=== PATIENT | male | born 1980 | race African-American/Black ===

== ENCOUNTER 2022-12-10 17:59 | Emergency (ER) | payer SELFPAY ==
--- NOTE | 2022-12-10 18:55 | EDPHYS ---
Physician Documentation [facility] Name: Mahamed Minor Sr Age: 42 yrs Sex: Male : 1980 Arrival Date: 12/10/2022 Time: 17:59 Bed 11 Private MD: MANNY Physician Zaki Crook HPI: 12/10 18:27 This 42 yrs old Black Male presents to ER via Ambulatory with complaints of Sore kb Throat, Ear Pain. 18:27 The patient presents with sore throat. The patient describes throat pain as constant. kb Onset: The symptoms/episode began/occurred 6 day(s) ago. Severity of symptoms: At their worst the symptoms were moderate, in the emergency department the symptoms are unchanged. Modifying factors: The symptoms are alleviated by nothing, the symptoms are aggravated by swallowing, Patient's oral intake status: good. Associated signs and symptoms: Pertinent positives: earache, Sore throat Pertinent negatives fever. The patient has not experienced similar symptoms in the past. The patient has not recently seen a physician. Historical: - Allergies: 18:21 No Known Allergies; aa5 - PMHx: 18:21 None; aa5 - PSHx: 18:21 vasectomy and reversal; aa5 - Immunization history:: Adult Immunizations unknown. - Social history:: Smoking status: Patient reports the use of cigarette tobacco products. ROS: 18:26 Constitutional: Negative for fever, chills, and weight loss. kb 18:26 ENT: Positive for ear pain, sore throat. 18:26 All other systems are negative. Exam: 18:26 Constitutional: This is a well developed, well nourished patient who is awake, alert, kb and in no acute distress. Head/Face: Normocephalic, atraumatic. Cardiovascular: Regular rate and rhythm with a normal S1 and S2. No gallops, murmurs, or rubs. No pulse deficits. Respiratory: Respirations even and unlabored. No increased work of breathing. Talking in full sentences Skin: Warm, dry with normal turgor. Normal color. MS/ Extremity: Pulses equal, no cyanosis. Neurovascular intact. Full, normal range of motion. Neuro: Awake and alert, GCS 15, oriented to person, place, time, and situation. Moves all extremities. Normal gait. 18:26 ENT: External ear(s): are unremarkable, Ear canal(s): are normal, TM's: are normal, Posterior pharynx: Airway: normal, Tonsils: are normal in appearance, Uvula: normal, midline, swelling, is not appreciated, erythema, that is moderate. Vital Signs: 18:20 BP 166 / 110; Pulse 56; Resp 15 S; Temp 97.7(TE); Pulse Ox 100% on R/A; Weight 85.28 kg aa5 (R); Height 5 ft. 9 in. (R); 18:20 Body Mass Index 27.76 (85.28 kg, 175.26 cm) aa5 MDM: 18:19 Patient medically screened. kb 18:26 Data reviewed: vital signs, nurses notes. kb 18:27 Differential diagnosis: retropharyngeal abcess pharyngitis, strep, uri, otitis media, kb peritonsillar abscess. 18:27 Test considered but Not performed: CT: CT soft tissue neck considered, but pt has no kb swelling, no fever, no lymphadenopathy. 18:54 Counseling: I had a detailed discussion with the patient and/or guardian regarding: the kb historical points, exam findings, and any diagnostic results supporting the discharge/admit diagnosis, lab results, the need for outpatient follow up, a family practitioner, to return to the emergency department if symptoms worsen or persist or if there are any questions or concerns that arise at home. 12/10 18:22 Order name: Strep kb 12/10 19:01 Order name: Throat Culture EDMS Administered Medications: 18:57 Drug: Ketorolac IM 30 mg Route: IM; Site: left gluteus; mb9 19:08 Follow up: Response: No adverse reaction mb9 Disposition Summary: 12/10/22 18:54 Discharge Ordered Location: Home kb Condition: Stable kb Diagnosis - Acute pharyngitis, unspecified kb Followup: kb - With: Emergency Department - When: As needed - Reason: Worsening of condition Followup: kb - With: Private Physician - When: 2 - 3 days - Reason: Recheck today's complaints, Continuance of care, Re-evaluation by your physician Discharge Instructions: - Discharge Summary Sheet kb - Sore Throat kb - Pharyngitis, [id number] kb Forms: - Medication Reconciliation Form kb - Thank You Letter kb - Antibiotic Education kb - Prescription Opioid Use kb Prescriptions: - Diclofenac Sodium 75 mg Oral tablet,delayed release (DR/EC) - take 1 tablet by ORAL route 2 times per day As needed; 30 tablet; Refills: 0, kb Product Selection Permitted Signatures: Dispatcher [employer] Michelle Nuñez, SOCOC DEEDEE-Quyen Petersen, RN RN aa5 Alexandra Martinez RN RN mb9
--- NOTE | 2022-12-10 18:55 | ER ---
Nurse's Notes [facility] Name: Mahamed Minor Sr Age: 42 yrs Sex: Male : 1980 Arrival Date: 12/10/2022 Time: 17:59 Bed 11 Private MD: Diagnosis: Acute pharyngitis, unspecified Presentation: 12/10 18:20 Chief complaint: Patient states: right ear pain radiating down to right jaw that began aa5 approximately 1 week ago. Coronavirus screen: sore throat. Ebola Screen: Patient denies travel to an Ebola-affected area in the 21 days before illness onset. Initial Sepsis Screen: Does the patient meet any 2 criteria? No. Patient's initial sepsis screen is negative. Does the patient have a suspected source of infection? No. Patient's initial sepsis screen is negative. Risk Assessment: Do you want to hurt yourself or someone else? Patient reports no desire to harm self or others. Onset of symptoms was November 2022. 18:20 Acuity: BERYL 4 aa5 18:20 Method Of Arrival: Ambulatory aa5 Historical: - Allergies: 18:21 No Known Allergies; aa5 - PMHx: 18:21 None; aa5 - PSHx: 18:21 vasectomy and reversal; aa5 - Immunization history:: Adult Immunizations unknown. - Social history:: Smoking status: Patient reports the use of cigarette tobacco products. Assessment: 19:08 General: Appears in no apparent distress. Pain: Complains of pain in neck Pain does not mb9 radiate. Neuro: Level of Consciousness is awake, alert, obeys commands, Oriented to person, place, time, situation, Appropriate for age. Respiratory: Airway is patent Respiratory effort is even, unlabored, Respiratory pattern is regular, symmetrical, Breath sounds are clear bilaterally. EENT: Throat is reddened. Derm: Skin is pink, warm \T\ dry. Musculoskeletal: Range of motion: intact in all extremities. Vital Signs: 18:20 BP 166 / 110; Pulse 56; Resp 15 S; Temp 97.7(TE); Pulse Ox 100% on R/A; Weight 85.28 kg aa5 (R); Height 5 ft. 9 in. (R); 18:20 Body Mass Index 27.76 (85.28 kg, 175.26 cm) aa5 ED Course: 18:00 Patient arrived in ED. am2 18:18 Michelle Sewell FNP-C is PSYCHIATRICP. kb 18:18 Zaki Crook MD is Attending Physician. kb 18:20 Arm band placed on. aa5 18:21 Triage completed. aa5 18:26 Strep swab sent to lab. aa5 18:57 Alexandra Martinez, RN is Primary Nurse. mb9 19:11 No provider procedures requiring assistance completed. mb9 Administered Medications: 18:57 Drug: Ketorolac IM 30 mg Route: IM; Site: left gluteus; mb9 19:08 Follow up: Response: No adverse reaction mb9 Medication: 19:11 VIS not applicable for this client. mb9 Outcome: 18:54 Discharge ordered by . kb 19:11 Discharged to home ambulatory. mb9 19:11 Condition: stable 19:11 Discharge instructions given to patient, Instructed on discharge instructions, follow up and referral plans. Demonstrated understanding of instructions, follow-up care, medications, Prescriptions given X 1. 19:12 Patient left the ED. mb9 Signatures: Michelle Sewell FNP-C [employer]-CkQuyen Bowman, RN RN aa5 Kathie Cole am2 Alexandra Martinez, RN RN mb9 Corrections: (The following items were deleted from the chart) 18:24 18:20 Pulse 56bpm; Resp 15bpm; Spontaneous; Pulse Ox 100% RA; Temp 97.7F Temporal; aa5 85.28 kg Reported; Height 5 ft. 9 in. Reported; BMI: 27.7; aa5
[2022-12-10] MEDS ORDERED: KETOROLAC 30 MG/ML INJ ONE (19:05)
[2022-12-10 19:15] VITALS: BP 166/110; TEMP 97.7; O2SAT 100
== END 2022-12-10 19:12 | disposition home or self-care (01) ==
LOC: ER 17:59
DX: J02.9 Acute pharyngitis, unspecified (principal)
CPT/HCPCS: 87070; 87081; 96372; 99284